=== PATIENT | female | born 2005 | race Caucasian/White ===

== ENCOUNTER → 2023-04-15 | Day surgery (SDC) | payer OTHER | END | disposition home or self-care (01) | LOC: JMAMMO-SUR 12:05 → JRADUS 12:05 | PROVIDERS: ATTEND Nurse Practitioner Family | PROC: 0HBT3ZX Excision of Right Breast, Percutaneous Approach, Diagnostic (ICD-10-PCS; principal; 2023-04-15) | DX: D24.1 Benign neoplasm of right breast (principal); N63.41 Unspecified lump in right breast, subareolar | CPT/HCPCS: 19083; 87899; A4648 ==

== ENCOUNTER 2023-09-03 01:37 | Emergency (ER) | payer OTHER ==
[2023-09-03 01:53] VITALS: BMI 21.9
[2023-09-03] MEDS ORDERED: ONDANSETRON 4 MG/2 ML VIAL ONE (02:33)
[2023-09-03] MEDS ORDERED: ACETAMINOPHEN INJECTION 100 ML IVPB ONE (02:33)
[2023-09-03] MEDS ORDERED: FAMOTIDINE 20 MG/50 ML IVPB 20 MG/50 ML MG IVPB ONE (02:34)
[2023-09-03] MEDS: LACTATED RINGERS SOLUTION 1000 ML INFUS.BAG IV ONE (03:02)
[2023-09-03] MEDS: ACETAMINOPHEN 1000 MG/100 ML BAG IVPB ONE (03:02)
[2023-09-03] MEDS: FAMOTIDINE 20 MG/50 ML IVPB 20 MG/50 ML MG IVPB ONE (03:03)
[2023-09-03] MEDS: ONDANSETRON 4 MG/2 ML VIAL IVPUSH ONE (03:03)
[2023-09-03 03:06] LABS: BASO % 0.2 % (0-2.0); EOS % 0.1 % (0-4.5); HEMOGLOBIN 15.1 GM/dL (10.7-15.3); LYMPH % 4.5 % (8-40); MCH 29.7 pg (25.7-33.7); MCHC 34.4 g/dl (32.0-36.0); MEAN CELL VOLUME 86.3 fl (80-96); MONO % 7.5 % (3.8-10.2); NEUT % 87.7 % (42.8-82.8); PLATELET COUNT 216 10^3/uL (134-434); RDW 13.8 % (11.6-15.6); WHITE BLOOD COUNT 6.6 K/mm3 (4.0-10.0)
[2023-09-03 03:32] LABS: POTASSIUM 3.6 mmol/L (3.5-5.1)
[2023-09-03 03:35] LABS: ALBUMIN 3.9 g/dl (3.4-5.0); BLOOD UREA NITROGEN 6.8 mg/dL (7-18); CALCIUM 8.9 mg/dL (8.5-10.1)
[2023-09-03 03:38] LABS: CREATININE 0.6 mg/dL (0.55-1.3)
[2023-09-03 03:39] LABS: BILIRUBIN,TOTAL 0.6 mg/dL (0.2-1); TOT PROT 7.5 g/dl (6.4-8.2)
[2023-09-03 04:27] LABS: PH,URINE 5.5 (5.0-8.0); URINE APPEARANCE CLOUDY; URINE BILIRUBIN NEGATIVE (NEGATIVE); URINE COLOR YELLOW; URINE GLUCOSE (UA) NEGATIVE (NEGATIVE); URINE KETONE 1+ (NEGATIVE); URINE LEUK ESTERASE NEGATIVE (NEGATIVE); URINE NITRITE NEGATIVE (NEGATIVE); URINE PROTEIN TRACE (NEGATIVE); URINE UROBILINOGEN 0.2 mg/dL (0.2-1.0)
[2023-09-03] MEDS ORDERED: MAG HYDROX/AL HYDROX/SIMETH 30 ML UNIT-DOSE CUP ONE (04:52)
[2023-09-03] MEDS: SODIUM CHLORIDE 0.9% 500 ML INFUS.BAG IV ONE (04:59)
[2023-09-03] MEDS: MAG HYDROX/AL HYDROX/SIMETH 30 ML UNIT-DOSE CUP PO ONE (05:01)
[2023-09-03] MEDS: IBUPROFEN 600 MG TABLET (FP) PO ONE (05:01)
[2023-09-03] MEDS ORDERED: SUCRALFATE 1 GM TABLET (FP) ONE (06:04)
[2023-09-03] MEDS: SUCRALFATE 1 GM TABLET (FP) PO STA (06:10)
[2023-09-03 07:46] VITALS: BP 95/53; PULSE 87; RESP 17; TEMP 98.5
== END 2023-09-03 08:14 | disposition home or self-care (01) ==
LOC: JER 01:37
PROC: 3E033GC Introduction of Other Therapeutic Substance into Peripheral Vein, Percutaneous Approach (ICD-10-PCS; principal; 2023-09-03)
PROC: 3E030NZ Introduction of Analgesics, Hypnotics, Sedatives into Peripheral Vein, Open Approach (ICD-10-PCS; 2023-09-03)
PROC: 3E030GC Introduction of Other Therapeutic Substance into Peripheral Vein, Open Approach (ICD-10-PCS; 2023-09-03)
DX: R10.816 Epigastric abdominal tenderness (principal); R11.0 Nausea; R19.7 Diarrhea, unspecified; Z20.822 Contact with and (suspected) exposure to COVID-19
CPT/HCPCS: 0241U-QW; 36415; 74177-TC; 80053; 81003; 83690; 83735; 84703; 85025; 87086; 99285-25; J0131; Q9967